=== PATIENT | male | born 1975 | race Caucasian/White ===

== ENCOUNTER → 2018-01-19 | Day surgery (SDC) | payer BC ==
[~2018-01-19] MED LIST: DICYCLOMINE HCL20 MG PO; DICYCLOMINE PO; FENTANYL CITRATE/PF 100MCG/2 ML INJ ONE; GLUCAGON FOR INJ 1 MG VIAL ONE; HYOSCYAMINE SULFATE 0.5 MG/ML AMP ONE; MIDAZOLAM HCL 2 MG/2 ML VIAL ONE; PROPOFOL IV EMULSION 10 MG/ML 50 ML VIAL ONE
[2018-01-19 15:26] LABS: WBC,FECAL (FECAL LACTOFERRIN) POSITIVE (NEGATIVE)
--- NOTE | 2018-01-19 15:55 | Operative Report ---
DATE OF PROCEDURE: January 19, 2018 REFERRING PHYSICIAN: Dr. Irving Ledesma. PROCEDURE PERFORMED: Colonoscopy and polypectomy with biopsies. INDICATIONS FOR PROCEDURE: Diarrhea, abdominal pain and history of bright red blood per rectum. MEDICATION: Patient was done under MAC. Please see anesthesiologist's note. PROCEDURE: With patient in the left lateral decubitus position, flexible fiberoptic Olympus colonoscope was inserted into the rectum with ease and advanced all the way to the cecum. Mucosa overlying the cecum grossly appeared to be within normal limits. The ileocecal valve was intubated. Scope was advanced into the terminal ileum. Biopsies were obtained. The scope was then withdrawn back into the colon. It was then withdrawn slowly. Mucosa overlying the ascending colon grossly appeared to be within normal limits. A segment of mid transverse colon to proximal descending colon was ulcerated, nodular and friable and biopsies were obtained. Some diverticular disease was scattered throughout but primarily in the left colon. Raised nodular and friable mucosa also was noted in the sigmoid colon alternating with relatively minimally involved mucosa. Biopsies were obtained. Mild to moderate inflammatory changes were noted in the rectum. Biopsies were obtained. One polyp was hot biopsied from the distal rectum. The scope was then retroflexed into the distal rectum and small internal hemorrhoids were noted, none of which was actively bleeding. The scope was then straightened out. The rectosigmoid area as well as the distal rectal area were decompressed. Scope was subsequently withdrawn after securing an adequate stool specimen that was sent for the appropriate stool studies. Patient tolerated procedure well. IMPRESSION: 1. A segment extending from approximately mid transverse colon to proximal descending colon, ulcerated, nodular and friable and biopsies were obtained. 2. Diverticulosis. . 3. Raised nodular, friable mucosa sigmoid colon alternating with relatively minimally involved mucosa. Biopsies were obtained. 4. Proctitis, biopsies obtained. 5. Polyp in distal rectum removed per hot biopsy forceps. 6. Internal hemorrhoids, none actively bleeding. PLAN: Follow up histology. Follow up stool studies. Findings are compatible with Crohn's disease. Will need to be initiated on an TNF alpha inhibitor. Job#: [id number] cc:IRVING LEDESMA,
[2018-01-19 20:44] LABS: C DIFFICILE TOXIN A&B AMP PROB NEGATIVE (NEGATIVE)
== END | disposition home or self-care (01) ==
LOC: OR 12:49
PROVIDERS: ATTEND Internal Medicine Gastroenterology
DX: K50.90 Crohn's disease, unspecified, without complications (principal); K63.5 Polyp of colon; K62.1 Rectal polyp; K57.30 Diverticulosis of large intestine without perforation or abscess without bleeding; K62.89 Other specified diseases of anus and rectum; K64.8 Other hemorrhoids; R63.4 Abnormal weight loss; R19.7 Diarrhea, unspecified; R03.0 Elevated blood-pressure reading, without diagnosis of hypertension; Z01.810 Encounter for preprocedural cardiovascular examination; Z68.26 Body mass index [BMI] 26.0-26.9, adult
CPT/HCPCS: 45380; 45384; 83630; 83993; 87045; 87177; 87328; 87493; 93005; J1610; J1980; J2250

== ENCOUNTER → 2021-02-04 | Day surgery (SDC) | payer BC ==
[~2021-02-04] MED LIST changes: +BENICAR20 MG PO; +FEROSUL325 MG PO; -GLUCAGON FOR INJ 1 MG VIAL ONE; +HUMIRA PEN40 MG/0.8 IM; -HYOSCYAMINE SULFATE 0.5 MG/ML AMP ONE; +LIDOCAINE HCL 2% LOCAL INJ 5 ML SDV VIAL INJ ONE; +MICARDIS40 MG PO; -MIDAZOLAM HCL 2 MG/2 ML VIAL ONE; +MIDAZOLAM HCL 5 MG/ML VIAL ONE; +PREDNISONE20 MG PO; +PROPOFOL IV EMULSION 10 MG/ML 20 ML VIAL ONE; -PROPOFOL IV EMULSION 10 MG/ML 50 ML VIAL ONE; +VITAMIN B-121000 MCG PO
[2021-02-04 12:05] VITALS: BP 139/89
== END | disposition home or self-care (01) ==
LOC: OR 06:54
PROVIDERS: ATTEND Internal Medicine Gastroenterology
DX: K50.90 Crohn's disease, unspecified, without complications (principal); D17.5 Benign lipomatous neoplasm of intra-abdominal organs; K63.5 Polyp of colon; K63.3 Ulcer of intestine; K62.89 Other specified diseases of anus and rectum; K64.8 Other hemorrhoids; I10 Essential (primary) hypertension; Z01.810 Encounter for preprocedural cardiovascular examination; Z01.812 Encounter for preprocedural laboratory examination; Z20.822 Contact with and (suspected) exposure to COVID-19; Z68.29 Body mass index [BMI] 29.0-29.9, adult
CPT/HCPCS: 36415; 45380; 45385; 83993; 85651; 86140; 86256; 86671; 93005; J2001; J2250; J2704; J3010; U0002; 45378; 45384

== ENCOUNTER 2021-02-06 10:03 | Inpatient (IN) | payer BC ==
[~2021-02-06] VITALS: Ht 175.3 cm; Wt 86.2 kg
[~2021-02-06 10:03] MED LIST changes: -FENTANYL CITRATE/PF 100MCG/2 ML INJ ONE; -FEROSUL325 MG PO; -LIDOCAINE HCL 2% LOCAL INJ 5 ML SDV VIAL INJ ONE; -MICARDIS40 MG PO; -MIDAZOLAM HCL 5 MG/ML VIAL ONE; -PREDNISONE20 MG PO; -PROPOFOL IV EMULSION 10 MG/ML 20 ML VIAL ONE; -VITAMIN B-121000 MCG PO
[2021-02-06] MEDS ORDERED: METHYLPREDNISOLONE SOD SUCC 125 MG/2ML VIAL IV ONE (11:00)
[2021-02-06] MEDS ORDERED: SODIUM CHLORIDE 0.9% 50ML 50 ML ONE (11:04)
[2021-02-06] MEDS ORDERED: IOPAMIDOL 370 MG/ML 200 ML INFUS..BTL INJ ONE (11:04)
[2021-02-06] MEDS: METHYLPREDNISOLONE SOD SUCC 125 MG/2ML VIAL IV SCH ×2 (11:13→17:38)
[2021-02-06] MEDS ORDERED: METHYLPREDNISOLONE SOD SUCC 125 MG/2ML VIAL ONE (11:19)
[2021-02-06] MEDS ORDERED: SODIUM CHLORIDE FLUSH 10 ML SYR INJ PRN (11:30)
[2021-02-06 13:33] LABS: INR 0.98; PROTHROMBIN TIME 13.6 seconds (11.9-14.5)
[2021-02-06 14:12] VITALS: BP 126/71
[2021-02-06 14:43] VITALS: BP 126/71
[2021-02-06 14:45] VITALS: BP 126/71
[2021-02-06 15:22] LABS: BASOPHILS # (AUTO) 0.1 (0.0-0.1); BASOPHILS % 0.6 % (0.0-1.0); EOSINOPHILS % 0.1 % (0.0-6.0); HEMATOCRIT 28.9 % (38.2-49.6); HEMOGLOBIN 9.4 g/dL (14.0-18.0); LYMPHOCYTES % 9.1 % (18.0-39.1); MEAN CORPUSCULAR HEMOGLOBIN 27.8 pg (28-32); MEAN CORPUSCULAR HGB CONC 32.5 g/dL (31-35); MEAN CORPUSCULAR VOLUME 85.5 fL (81-99); MONOCYTES # (AUTO) 0.1 (0.2-0.8); NEUTROPHILS # (AUTO) 9.3 (2.1-6.9); NEUTROPHILS % 88.6 % (38.7-80.0); PLATELET COUNT 276 x10e3/uL (140-360); RED BLOOD COUNT 3.38 x10e6/uL (4.3-5.7); RED CELL DISTRIBUTION WIDTH 14.5 % (11.7-14.4)
[2021-02-06 15:38] LABS: ALANINE AMINOTRANSFERASE 84 IU/L (0-55); ALBUMIN 3.8 g/dL (3.5-5.0); ALKALINE PHOSPHATASE 64 IU/L (40-150); ANION GAP 16.2 mmol/L (8-16); BLOOD UREA NITROGEN 7 mg/dL (7-26); BUN/CREATININE RATIO 8 (6-25); CALCIUM 8.5 mg/dL (8.4-10.2); CARBON DIOXIDE 22 mmol/L (22-29); CHLORIDE 104 mmol/L (98-107); CREATININE, SERUM 0.84 mg/dL (0.72-1.25); EST GLOMERULAR FILTRATION RATE > 60 ML/MIN (60-); GLUCOSE 130 mg/dL (74-118); POTASSIUM 4.2 mmol/L (3.5-5.1); SODIUM 138 mmol/L (136-145)
[2021-02-06 15:45] VITALS: BP 132/70
[2021-02-06 19:21] LABS: HEMATOCRIT 28.3 % (38.2-49.6)
[2021-02-06 20:00] VITALS: BP 134/79
[2021-02-06 23:36] VITALS: BP 134/79
[2021-02-07] VITALS (8 sets, daily range): BP systolic 109–139; BP diastolic 53–79
[2021-02-07 05:03] LABS: HEMATOCRIT 27.2 % (38.2-49.6); HEMOGLOBIN 8.6 g/dL (14.0-18.0)
[2021-02-07 05:20] LABS: ANION GAP 14.4 mmol/L (8-16); BLOOD UREA NITROGEN 8 mg/dL (7-26); BUN/CREATININE RATIO 9 (6-25); CALCIUM 8.5 mg/dL (8.4-10.2); CARBON DIOXIDE 24 mmol/L (22-29); CHLORIDE 106 mmol/L (98-107); CREATININE, SERUM 0.87 mg/dL (0.72-1.25); EST GLOMERULAR FILTRATION RATE > 60 ML/MIN (60-); GLUCOSE 155 mg/dL (74-118); POTASSIUM 4.4 mmol/L (3.5-5.1); SODIUM 140 mmol/L (136-145)
[2021-02-07 05:35] LABS: % IRON SATURATION 7 % (15-50); IRON 28 ug/dL (65-175); TOTAL IRON BINDING CAPACITY 374 ug/dL (261-478); TRANSFERRIN 267 mg/dL (174-364)
[2021-02-07 06:54] LABS: BASOPHILS % 0.1 % (0.0-1.0); HEMOGLOBIN 8.6 g/dL (14.0-18.0); LYMPHOCYTES # (AUTO) 1.6 (1.0-3.2); LYMPHOCYTES % 12.3 % (18.0-39.1); MEAN CORPUSCULAR HEMOGLOBIN 27.5 pg (28-32); MEAN CORPUSCULAR HGB CONC 31.9 g/dL (31-35); MEAN CORPUSCULAR VOLUME 86.3 fL (81-99); MONOCYTES # (AUTO) 0.3 (0.2-0.8); MONOCYTES % 1.9 % (4.4-11.3); NEUTROPHILS # (AUTO) 11.3 (2.1-6.9); NEUTROPHILS % 85.1 % (38.7-80.0); PLATELET COUNT 280 x10e3/uL (140-360); RED BLOOD COUNT 3.13 x10e6/uL (4.3-5.7); RED CELL DISTRIBUTION WIDTH 14.7 % (11.7-14.4)
[2021-02-07] MEDS ORDERED: METHYLPREDNISOLONE SOD SUCC 125 MG/2ML VIAL IV SCH (09:00)
[2021-02-07] MEDS: TELMISARTAN 40 MG TAB PO SCH (09:00)
[2021-02-07] MEDS ORDERED: OLMESARTAN 20 MG TAB PO SCH (09:00)
[2021-02-07 13:07] LABS: HEMOGLOBIN 8.8 g/dL (14.0-18.0)
[2021-02-07] MEDS: METHYLPREDNISOLONE SOD SUCC 125 MG/2ML VIAL IV SCH ×2 (15:00→19:27)
[2021-02-07 18:09] LABS: HEMOGLOBIN 8.7 g/dL (14.0-18.0)
[2021-02-08] VITALS: BP 136/65
[2021-02-08] MEDS: METHYLPREDNISOLONE SOD SUCC 125 MG/2ML VIAL IV SCH ×2 (00:38→06:40)
[2021-02-08 04:00] VITALS: BP 131/77
[2021-02-08 05:07] LABS: HEMATOCRIT 26.5 % (38.2-49.6); HEMOGLOBIN 8.3 g/dL (14.0-18.0)
[2021-02-08 05:39] LABS: ANION GAP 14.6 mmol/L (8-16); BLOOD UREA NITROGEN 11 mg/dL (7-26); BUN/CREATININE RATIO 12 (6-25); CALCIUM 8.3 mg/dL (8.4-10.2); CARBON DIOXIDE 27 mmol/L (22-29); CHLORIDE 105 mmol/L (98-107); CREATININE, SERUM 0.92 mg/dL (0.72-1.25); EST GLOMERULAR FILTRATION RATE > 60 ML/MIN (60-); GLUCOSE 153 mg/dL (74-118); POTASSIUM 4.6 mmol/L (3.5-5.1); SODIUM 142 mmol/L (136-145)
[2021-02-08 07:16] LABS: BASOPHILS % 0.1 % (0.0-1.0); HEMATOCRIT 26.7 % (38.2-49.6); HEMOGLOBIN 8.4 g/dL (14.0-18.0); LYMPHOCYTES # (AUTO) 1.8 (1.0-3.2); LYMPHOCYTES % 11.7 % (18.0-39.1); MEAN CORPUSCULAR HEMOGLOBIN 27.5 pg (28-32); MEAN CORPUSCULAR HGB CONC 31.5 g/dL (31-35); MEAN CORPUSCULAR VOLUME 87.5 fL (81-99); MONOCYTES # (AUTO) 0.5 (0.2-0.8); MONOCYTES % 3.5 % (4.4-11.3); NEUTROPHILS # (AUTO) 12.5 (2.1-6.9); PLATELET COUNT 296 x10e3/uL (140-360); RED BLOOD COUNT 3.05 x10e6/uL (4.3-5.7); RED CELL DISTRIBUTION WIDTH 15.1 % (11.7-14.4)
[2021-02-08 08:40] VITALS: BP 123/64
[2021-02-08] MEDS ORDERED: IRON SUCROSE 100 MG in SODIUM CHLORIDE 0.9% 100 ML 100 ML IV SCH (09:00)
[2021-02-08] MEDS ORDERED: CYANOCOBALAMIN INJ 1,000 MCG/ML VIAL IM SCH (09:00)
[2021-02-08] MEDS: TELMISARTAN 40 MG TAB PO SCH (09:10)
[2021-02-08] MEDS ORDERED: MICARDIS40 MG PO (10:06)
[2021-02-08] MEDS ORDERED: VITAMIN B-121000 MCG PO (10:06)
[2021-02-08] MEDS ORDERED: PREDNISONE20 MG PO (10:06)
[2021-02-08] MEDS ORDERED: FEROSUL325 MG PO (10:06)
== END 2021-02-08 10:46 | disposition home or self-care (01) | DRG 387 ==
LOC: FSED 10:17 → ERHOLD 11:42 → IMCU 13:50 → MED/SURG2 02-07 07:34 → OBSVTOIN 02-08 08:38
PROVIDERS: ADMIT Internal Medicine; ATTEND Internal Medicine
DX: K50.111 Crohn's disease of large intestine with rectal bleeding (principal); I10 Essential (primary) hypertension; D64.9 Anemia, unspecified; Z86.010 Personal history of colon polyps; Z98.890 Other specified postprocedural states
CPT/HCPCS: 36415; 74177; 80048; 80053; 82607; 82746; 83540; 83735; 84466; 85014; 85018; 85025; 85045; 85610; 85730; 86850; 86900; 99284; G0378; J1756; J2930; J3420; Q9967

== ENCOUNTER 2022-04-22 09:21 | Emergency (ER) | payer BC ==
[~2022-04-22] VITALS: Ht 175.3 cm; Wt 86.2 kg
[~2022-04-22 09:21] MED LIST changes: +FEROSUL325 MG PO; +MICARDIS40 MG PO; +PREDNISONE20 MG PO; +VITAMIN B-121000 MCG PO
[2022-04-22] MEDS ORDERED: SODIUM CHLORIDE 0.9% 1000ML 1,000 ML IV STA (09:40)
[2022-04-22] MEDS ORDERED: ONDANSETRON HCL INJ 2MG/ML 2ML 2 MG/ML VIAL IV STA (09:55)
[2022-04-22] MEDS ORDERED: Morphine 4mg INJECTION 4 MG/ML INJ IV STA (09:55)
[2022-04-22 10:47] LABS: BASOPHILS # (AUTO) 0.1 (0.0-0.1); BASOPHILS % 0.8 % (0.0-1.0); EOSINOPHILS # (AUTO) 0.1 (0.0-0.4); EOSINOPHILS % 0.8 % (0.0-6.0); HEMATOCRIT 35.7 % (38.2-49.6); HEMOGLOBIN 10.9 g/dL (14.0-18.0); LYMPHOCYTES # (AUTO) 2.4 (1.0-3.2); LYMPHOCYTES % 16.4 % (18.0-39.1); MEAN CORPUSCULAR HEMOGLOBIN 24.2 pg (28-32); MEAN CORPUSCULAR HGB CONC 30.5 g/dL (31-35); MEAN CORPUSCULAR VOLUME 79.2 fL (81-99); MONOCYTES # (AUTO) 1.6 (0.2-0.8); MONOCYTES % 10.9 % (4.4-11.3); NEUTROPHILS # (AUTO) 10.2 (2.1-6.9); NEUTROPHILS % 70.2 % (38.7-80.0); PLATELET COUNT 734 x10e3/uL (140-360); RED BLOOD COUNT 4.51 x10e6/uL (4.3-5.7); RED CELL DISTRIBUTION WIDTH 14.6 % (11.7-14.4)
[2022-04-22 10:50] LABS: CLARITY,URINE CLEAR (CLEAR); COLOR,URINE YELLOW (YELLOW); KETONES,URINE NEGATIVE (NEGATIVE); LEUKOCYTE ESTERASE ,URINE NEGATIVE (NEGATIVE); NITRITE,URINE NEGATIVE (NEGATIVE); PROTEIN,URINE DIPSTICK NEGATIVE (NEGATIVE); URINE UROBILINOGEN 0.2 mg/dL (0.2 - 1)
[2022-04-22 10:59] LABS: BACTERIA,URINE FEW /HPF; EPITHELIAL CELLS,URINE FEW /LPF; RBC,URINE 0-5 /HPF (0-5); WBC,URINE (MAN) 0-5 /HPF (0-5)
[2022-04-22 11:05] LABS: INR 1.03; PROTHROMBIN TIME 14.4 seconds (11.9-14.5)
[2022-04-22 11:07] LABS: PARTIAL THROMBOPLASTIN TIME 34.1 seconds (23.8-35.5)
[2022-04-22 11:10] LABS: ALBUMIN 2.3 g/dL (3.5-5.0); ALBUMIN/GLOBULIN RATIO 0.5 (0.8-2.0); ANION GAP 14.3 mmol/L (8-16); CALCIUM 8.2 mg/dL (8.4-10.2); CREATININE, SERUM 0.84 mg/dL (0.72-1.25); MAGNESIUM 1.7 MG/DL (1.3-2.1); POTASSIUM 4.3 mmol/L (3.5-5.1)
[2022-04-22 11:29] LABS: CREATINE KINASE MB 0.3 ng/mL (0-5.0)
[2022-04-22] MEDS ORDERED: IOPAMIDOL 370 MG/ML 100 ML INFUS..BTL INJ ONE (11:38)
[2022-04-22 13:53] VITALS: BP 111/72
== END 2022-04-22 14:01 | disposition home or self-care (01) ==
LOC: ER 09:31
DX: R10.30 Lower abdominal pain, unspecified (principal); K50.90 Crohn's disease, unspecified, without complications; R11.0 Nausea; I10 Essential (primary) hypertension; Z20.822 Contact with and (suspected) exposure to COVID-19
CPT/HCPCS: 36415; 74177; 76705; 80053; 81001; 82550; 82553; 83690; 83735; 84484; 85025; 85610; 85730; 87086; 93005; 99284; C9113; J2270; J2405; J7030; Q9967; U0002

== ENCOUNTER → 2022-05-13 | Outpatient (CLI) | payer BC ==
[~2022-05-13] MED LIST changes: +APRISO0.375 GM PO; +STELARA130 MG/26 IM/IV/SC
== END ==
LOC: RAD 09:59
PROVIDERS: ATTEND Internal Medicine Gastroenterology
DX: K50.90 Crohn's disease, unspecified, without complications (principal); R10.9 Unspecified abdominal pain
CPT/HCPCS: 74019

== ENCOUNTER 2022-05-17 22:43 | Inpatient (IN) | payer BC ==
[~2022-05-17] VITALS: Ht 175.3 cm; Wt 68.0 kg
[2022-05-17] MEDS ORDERED: SODIUM CHLORIDE 0.9% 1000ML 1,000 ML IV STA (23:19)
[2022-05-17 23:28] LABS: BASOPHILS # (AUTO) 0.1 (0.0-0.1); BASOPHILS % 0.3 % (0.0-1.0); EOSINOPHILS # (AUTO) 0.1 (0.0-0.4); EOSINOPHILS % 0.8 % (0.0-6.0); HEMATOCRIT 37.5 % (38.2-49.6); HEMOGLOBIN 11.4 g/dL (14.0-18.0); LYMPHOCYTES # (AUTO) 4.9 (1.0-3.2); LYMPHOCYTES % 26.5 % (18.0-39.1); MEAN CORPUSCULAR HEMOGLOBIN 24.3 pg (28-32); MEAN CORPUSCULAR HGB CONC 30.4 g/dL (31-35); MONOCYTES # (AUTO) 0.6 (0.2-0.8); NEUTROPHILS # (AUTO) 12.7 (2.1-6.9); PLATELET COUNT 874 x10e3/uL (140-360); RED BLOOD COUNT 4.69 x10e6/uL (4.3-5.7); RED CELL DISTRIBUTION WIDTH 15.9 % (11.7-14.4)
[2022-05-17 23:39] LABS: ALBUMIN 2.6 g/dL (3.5-5.0); ALBUMIN/GLOBULIN RATIO 0.6 (0.8-2.0); ANION GAP 17.1 mmol/L (8-16); CALCIUM 8.2 mg/dL (8.4-10.2); CREATININE, SERUM 1.02 mg/dL (0.72-1.25); POTASSIUM 4.1 mmol/L (3.5-5.1)
[2022-05-18] VITALS (8 sets, daily range): BP systolic 108–118; BP diastolic 65–78
[2022-05-18] MEDS: ONDANSETRON HCL INJ 2MG/ML 2ML 2 MG/ML VIAL IV PRN ×2 (00:10→01:36)
[2022-05-18] MEDS ORDERED: IOPAMIDOL 370 MG/ML 100 ML INFUS..BTL INJ ONE (00:28)
[2022-05-18] MEDS: FENTANYL CITRATE/PF 100MCG/2 ML INJ IV PRN ×6 (01:35→22:52)
[2022-05-18 01:37] LABS: CLARITY,URINE CLEAR (CLEAR); COLOR,URINE YELLOW (YELLOW); KETONES,URINE NEGATIVE (NEGATIVE); LEUKOCYTE ESTERASE ,URINE NEGATIVE (NEGATIVE); NITRITE,URINE NEGATIVE (NEGATIVE); PROTEIN,URINE DIPSTICK NEGATIVE (NEGATIVE); URINE UROBILINOGEN 0.2 mg/dL (0.2 - 1)
[2022-05-18 01:42] LABS: BACTERIA,URINE FEW /HPF; EPITHELIAL CELLS,URINE FEW /LPF; WBC,URINE (MAN) 0-5 /HPF (0-5)
[2022-05-18] MEDS ORDERED: ONDANSETRON HCL INJ 2MG/ML 2ML 2 MG/ML VIAL IV PRN (02:15)
[2022-05-18] MEDS: METHYLPREDNISOLONE SOD SUCC 40 MG/ML VIAL 1ML IV SCH ×5 (02:17→23:37)
[2022-05-18] MEDS: SODIUM CHLORIDE 0.9% 1000ML 1,000 ML IV SCH ×3 (03:19→20:01)
[2022-05-18] MEDS: Morphine 2mg Syringe 2 MG/ML SYR IV PRN ×5 (03:20→20:39)
[2022-05-18 11:24] LABS: CHOL/HDL RATIO 2.9 (3.9-4.7)
[2022-05-18] MEDS: SODIUM CHLORIDE 0.9% 250ML IRRIG IR SCH ×3 (12:01→20:01)
[2022-05-18] MEDS ORDERED: METRONIDAZOLE 500MG/NS 100ML 100 ML IV SCH (14:00)
[2022-05-18] MEDS ORDERED: LEVOFLOXACIN 500MG/D5W 100ML 100 ML IV ONE (23:45)
[2022-05-19] VITALS (8 sets, daily range): BP systolic 101–133; BP diastolic 63–77
[2022-05-19 00:03] LABS: % IRON SATURATION 9 % (15-50); IRON 22 ug/dL (65-175); TOTAL IRON BINDING CAPACITY 253 ug/dL (261-478); TRANSFERRIN 181 mg/dL (174-364)
[2022-05-19] MEDS: METRONIDAZOLE 500MG/NS 100ML 100 ML IV SCH ×4 (00:07→17:07)
[2022-05-19] MEDS: SODIUM CHLORIDE 0.9% 250ML IRRIG IR SCH ×6 (00:07→20:20)
[2022-05-19] MEDS: Morphine 2mg Syringe 2 MG/ML SYR IV PRN ×5 (00:40→20:09)
[2022-05-19] MEDS: FENTANYL CITRATE/PF 100MCG/2 ML INJ IV PRN (02:48)
[2022-05-19] MEDS: SODIUM CHLORIDE 0.9% 1000ML 1,000 ML IV SCH ×3 (05:01→17:13)
[2022-05-19 05:21] LABS: BASOPHILS # (AUTO) 0.1 (0.0-0.1); BASOPHILS % 0.5 % (0.0-1.0); HEMATOCRIT 32.9 % (38.2-49.6); HEMOGLOBIN 10.3 g/dL (14.0-18.0); LYMPHOCYTES # (AUTO) 0.8 (1.0-3.2); LYMPHOCYTES % 4.1 % (18.0-39.1); MEAN CORPUSCULAR HEMOGLOBIN 24.3 pg (28-32); MEAN CORPUSCULAR HGB CONC 31.3 g/dL (31-35); MEAN CORPUSCULAR VOLUME 77.6 fL (81-99); MONOCYTES # (AUTO) 0.5 (0.2-0.8); MONOCYTES % 2.4 % (4.4-11.3); NEUTROPHILS # (AUTO) 18.6 (2.1-6.9); NEUTROPHILS % 90.3 % (38.7-80.0); PLATELET COUNT 574 x10e3/uL (140-360); RED BLOOD COUNT 4.24 x10e6/uL (4.3-5.7); RED CELL DISTRIBUTION WIDTH 16.2 % (11.7-14.4)
[2022-05-19 05:44] LABS: ALBUMIN 1.9 g/dL (3.5-5.0); ALBUMIN/GLOBULIN RATIO 0.5 (0.8-2.0); ANION GAP 16.7 mmol/L (8-16); CALCIUM 7.8 mg/dL (8.4-10.2); CREATININE, SERUM 1.11 mg/dL (0.72-1.25); POTASSIUM 4.7 mmol/L (3.5-5.1)
[2022-05-19] MEDS: METHYLPREDNISOLONE SOD SUCC 40 MG/ML VIAL 1ML IV SCH ×3 (05:59→17:07)
[2022-05-19] MEDS ORDERED: IRON SUCROSE 100 MG in SODIUM CHLORIDE 0.9% 100 ML IV SCH (06:00)
[2022-05-19] MEDS: IRON SUCROSE 100 MG in SODIUM CHLORIDE 0.9% 100 ML IV SCH (08:46)
[2022-05-19 11:58] LABS: BAND NEUTROPHILS % (MANUAL) 20 %; LYMPHOCYTES % (MANUAL) 1 % (19-48); METAMYELOCYTES % (MANUAL) 4 % (0-0); MONOCYTES % (MANUAL) 3 % (3.4-9.0); NEUTROPHILS % (MANUAL) 72 % (40-74); PLATELET ESTIMATE SLIGHTLY INCREASED; PLATELET MORPHOLOGY COMMENT NORMAL; RBC MORPHOLOGY COMMENT NORMAL
[2022-05-19] MEDS: BISACODYL 10 MG SUPP PR SCH (20:09)
[2022-05-19] MEDS: LEVOFLOXACIN 500MG/D5W 100ML 100 ML IV SCH (22:46)
[2022-05-19] MEDS ORDERED: FOLIC ACID 5 MG/ML VIAL IV ONE (23:15)
[2022-05-20] VITALS (8 sets, daily range): BP systolic 105–126; BP diastolic 65–83
[2022-05-20] MEDS: SODIUM CHLORIDE 0.9% 250ML IRRIG IR SCH ×6 (00:52→20:00)
[2022-05-20] MEDS: METRONIDAZOLE 500MG/NS 100ML 100 ML IV SCH ×4 (01:24→17:03)
[2022-05-20] MEDS: METHYLPREDNISOLONE SOD SUCC 40 MG/ML VIAL 1ML IV SCH ×4 (01:24→17:02)
[2022-05-20] MEDS: SODIUM CHLORIDE 0.9% 1000ML 1,000 ML IV SCH ×3 (03:03→17:04)
[2022-05-20] MEDS: BISACODYL 10 MG SUPP PR SCH (09:24)
[2022-05-20] MEDS: IRON SUCROSE 100 MG in SODIUM CHLORIDE 0.9% 100 ML IV SCH (09:24)
[2022-05-20 11:28] LABS: BASOPHILS # (AUTO) 0.1 (0.0-0.1); BASOPHILS % 0.4 % (0.0-1.0); HEMATOCRIT 28.6 % (38.2-49.6); HEMOGLOBIN 9.2 g/dL (14.0-18.0); LYMPHOCYTES # (AUTO) 0.6 (1.0-3.2); LYMPHOCYTES % 2.9 % (18.0-39.1); MEAN CORPUSCULAR HEMOGLOBIN 24.3 pg (28-32); MEAN CORPUSCULAR HGB CONC 32.2 g/dL (31-35); MEAN CORPUSCULAR VOLUME 75.5 fL (81-99); MONOCYTES # (AUTO) 0.4 (0.2-0.8); NEUTROPHILS # (AUTO) 20.2 (2.1-6.9); NEUTROPHILS % 93.2 % (38.7-80.0); PLATELET COUNT 492 x10e3/uL (140-360); RED BLOOD COUNT 3.79 x10e6/uL (4.3-5.7); RED CELL DISTRIBUTION WIDTH 16.8 % (11.7-14.4)
[2022-05-20 12:00] LABS: ANION GAP 13.4 mmol/L (8-16); CALCIUM 8.2 mg/dL (8.4-10.2); CREATININE, SERUM 1.03 mg/dL (0.72-1.25); POTASSIUM 4.4 mmol/L (3.5-5.1)
[2022-05-20 12:10] LABS: LYMPHOCYTES % (MANUAL) 3 % (19-48); NEUTROPHILS % (MANUAL) 97 % (40-74); PLATELET ESTIMATE ADEQUATE; PLATELET MORPHOLOGY COMMENT NORMAL; RBC MORPHOLOGY COMMENT NORMAL
[2022-05-20] MEDS: LEVOFLOXACIN 500MG/D5W 100ML 100 ML IV SCH (22:51)
[2022-05-21] VITALS (17 sets, daily range): BP systolic 120–156; BP diastolic 84–103
[2022-05-21] MEDS: SODIUM CHLORIDE 0.9% 1000ML 1,000 ML IV SCH ×4 (03:18→23:21)
[2022-05-21] MEDS: SODIUM CHLORIDE 0.9% 250ML IRRIG IR SCH ×7 (04:00→21:14)
[2022-05-21] MEDS: METRONIDAZOLE 500MG/NS 100ML 100 ML IV SCH ×4 (05:15→20:01)
[2022-05-21] MEDS: METHYLPREDNISOLONE SOD SUCC 40 MG/ML VIAL 1ML IV SCH ×5 (06:00→23:13)
[2022-05-21] MEDS: IRON SUCROSE 100 MG in SODIUM CHLORIDE 0.9% 100 ML IV SCH (09:09)
[2022-05-21 09:38] LABS: BASOPHILS % 0.1 % (0.0-1.0); HEMATOCRIT 29.5 % (38.2-49.6); HEMOGLOBIN 9.4 g/dL (14.0-18.0); LYMPHOCYTES # (AUTO) 0.8 (1.0-3.2); LYMPHOCYTES % 4.4 % (18.0-39.1); MEAN CORPUSCULAR HEMOGLOBIN 23.9 pg (28-32); MEAN CORPUSCULAR HGB CONC 31.9 g/dL (31-35); MEAN CORPUSCULAR VOLUME 75.1 fL (81-99); MONOCYTES # (AUTO) 0.5 (0.2-0.8); MONOCYTES % 2.9 % (4.4-11.3); NEUTROPHILS # (AUTO) 16.1 (2.1-6.9); NEUTROPHILS % 91.4 % (38.7-80.0); PLATELET COUNT 419 x10e3/uL (140-360); RED BLOOD COUNT 3.93 x10e6/uL (4.3-5.7); RED CELL DISTRIBUTION WIDTH 17.1 % (11.7-14.4)
[2022-05-21 09:58] LABS: ANION GAP 12.9 mmol/L (8-16); CALCIUM 8.1 mg/dL (8.4-10.2); CREATININE, SERUM 0.97 mg/dL (0.72-1.25); POTASSIUM 3.9 mmol/L (3.5-5.1)
[2022-05-21 10:28] LABS: MAGNESIUM 2.3 MG/DL (1.3-2.1); PHOSPHORUS 3.8 MG/DL (2.3-4.7)
[2022-05-21] MEDS ORDERED: MIDAZOLAM HCL 2 MG/2 ML VIAL ONE (14:24)
[2022-05-21] MEDS ORDERED: FENTANYL CITRATE/PF 100MCG/2 ML INJ ONE (14:24)
[2022-05-21] MEDS ORDERED: SUCCINYLCHOLINE CHLORIDE 20 MG/ML 10ML VIAL ONE (14:40)
[2022-05-21] MEDS ORDERED: LIDOCAINE HCL 2% LOCAL INJ 5 ML SDV VIAL INJ ONE (14:40)
[2022-05-21] MEDS ORDERED: NEOSTIGMINE 1 MG/ML 10ML VIAL ONE (14:40)
[2022-05-21] MEDS ORDERED: POVIDONE IODINE 0.05% 0.05 % ML PO ONE (14:40)
[2022-05-21] MEDS ORDERED: ROCURONIUM BROMIDE 10 MG/ML 5ML VIAL IV ONE (14:40)
[2022-05-21] MEDS ORDERED: ONDANSETRON HCL INJ 2MG/ML 2ML 2 MG/ML VIAL ONE (14:40)
[2022-05-21] MEDS ORDERED: SEVOFLURANE INHAL SOLN 250 ML PEN BTL ONE (14:40)
[2022-05-21] MEDS ORDERED: GLYCOPYRROLATE INJ 0.2 MG/ML VIAL ONE (14:40)
[2022-05-21] MEDS ORDERED: PROPOFOL IV EMULSION 10 MG/ML 20 ML VIAL ONE (14:40)
[2022-05-21] MEDS ORDERED: DEXAMETHASONE SOD PHOS INJ 4 MG/ML SDV ONE (14:40)
[2022-05-21] MEDS ORDERED: KETOROLAC TROMETHAMINE 30 MG/ML VIAL ONE (14:40)
[2022-05-21] MEDS ORDERED: NALOXONE HCL INJ 0.4 MG/ML AMP IV PRN (17:00)
[2022-05-21] MEDS ORDERED: HYDROMORPHONE 0.2MG/ML-SOD CHL 30ML PCA SYRINGE IV PRN (17:00)
[2022-05-21] MEDS ORDERED: ONDANSETRON HCL INJ 2MG/ML 2ML 2 MG/ML VIAL IV PRN (17:00)
[2022-05-21] MEDS: KETOROLAC TROMETHAMINE 30 MG/ML VIAL IV PRN (23:13)
[2022-05-22] VITALS (26 sets, daily range): BP systolic 108–144; BP diastolic 69–109
[2022-05-22] MEDS: SODIUM CHLORIDE 0.9% 250ML IRRIG IR SCH ×6 (01:28→20:42)
[2022-05-22] MEDS: METRONIDAZOLE 500MG/NS 100ML 100 ML IV SCH ×4 (02:38→19:59)
[2022-05-22] MEDS: METHYLPREDNISOLONE SOD SUCC 40 MG/ML VIAL 1ML IV SCH ×4 (05:33→22:29)
[2022-05-22] MEDS: KETOROLAC TROMETHAMINE 30 MG/ML VIAL IV PRN ×2 (05:34→20:00)
[2022-05-22] MEDS: SODIUM CHLORIDE 0.9% 1000ML 1,000 ML IV SCH (06:10)
[2022-05-22 09:42] LABS: BASOPHILS % 0.2 % (0.0-1.0); HEMATOCRIT 28.5 % (38.2-49.6); HEMOGLOBIN 8.9 g/dL (14.0-18.0); LYMPHOCYTES # (AUTO) 0.8 (1.0-3.2); MEAN CORPUSCULAR HGB CONC 31.2 g/dL (31-35); MEAN CORPUSCULAR VOLUME 76.8 fL (81-99); MONOCYTES # (AUTO) 0.8 (0.2-0.8); MONOCYTES % 4.8 % (4.4-11.3); NEUTROPHILS # (AUTO) 14.3 (2.1-6.9); NEUTROPHILS % 88.4 % (38.7-80.0); PLATELET COUNT 310 x10e3/uL (140-360); RED BLOOD COUNT 3.71 x10e6/uL (4.3-5.7); RED CELL DISTRIBUTION WIDTH 17.2 % (11.7-14.4)
[2022-05-22 10:03] LABS: ALBUMIN 1.6 g/dL (3.5-5.0); ALBUMIN/GLOBULIN RATIO 0.5 (0.8-2.0); ANION GAP 12.1 mmol/L (8-16); CALCIUM 7.1 mg/dL (8.4-10.2); CREATININE, SERUM 1.08 mg/dL (0.72-1.25); POTASSIUM 4.1 mmol/L (3.5-5.1)
[2022-05-22] MEDS ORDERED: SODIUM CHLORIDE 0.45% 1,000 ML IV ONE (12:15)
[2022-05-22] MEDS: IRON SUCROSE 100 MG in SODIUM CHLORIDE 0.9% 100 ML IV SCH (12:29)
[2022-05-22] MEDS: HYDROMORPHONE 1MG/1ML INJ IV PRN ×3 (13:16→22:59)
[2022-05-22] MEDS ORDERED: LACTATED RINGER'S 500 ML IV ONE (15:30)
[2022-05-22] MEDS ORDERED: LACTATED RINGER'S 1,000 ML ONE (15:50)
[2022-05-22] MEDS ORDERED: LACTATED RINGER'S 1,000 ML IV ONE (18:00)
[2022-05-22 18:57] LABS: ANION GAP 14.1 mmol/L (8-16); CREATININE, SERUM 0.93 mg/dL (0.72-1.25); POTASSIUM 4.1 mmol/L (3.5-5.1)
[2022-05-22 19:11] LABS: CALCIUM 6.9 mg/dL (8.4-10.2)
[2022-05-22] MEDS: SODIUM CHLORIDE 0.45% 1,000 ML IV SCH (20:42)
[2022-05-23] VITALS (25 sets, daily range): BP systolic 117–150; BP diastolic 75–95
[2022-05-23] MEDS: SODIUM CHLORIDE 0.9% 250ML IRRIG IR SCH ×6 (01:00→20:48)
[2022-05-23] MEDS: METRONIDAZOLE 500MG/NS 100ML 100 ML IV SCH ×4 (02:11→20:35)
[2022-05-23] MEDS: SODIUM CHLORIDE 0.45% 1,000 ML IV SCH ×3 (03:22→15:32)
[2022-05-23] MEDS: HYDROMORPHONE 1MG/1ML INJ IV PRN ×5 (03:27→20:32)
[2022-05-23] MEDS: METHYLPREDNISOLONE SOD SUCC 40 MG/ML VIAL 1ML IV SCH ×3 (05:53→21:42)
[2022-05-23] MEDS: IRON SUCROSE 100 MG in SODIUM CHLORIDE 0.9% 100 ML IV SCH (08:28)
[2022-05-23 09:24] LABS: BASOPHILS % 0.1 % (0.0-1.0); HEMATOCRIT 26.2 % (38.2-49.6); LYMPHOCYTES # (AUTO) 1.2 (1.0-3.2); LYMPHOCYTES % 8.4 % (18.0-39.1); MEAN CORPUSCULAR HGB CONC 30.5 g/dL (31-35); MEAN CORPUSCULAR VOLUME 78.7 fL (81-99); MONOCYTES # (AUTO) 0.8 (0.2-0.8); MONOCYTES % 5.6 % (4.4-11.3); NEUTROPHILS # (AUTO) 11.5 (2.1-6.9); RED BLOOD COUNT 3.33 x10e6/uL (4.3-5.7); RED CELL DISTRIBUTION WIDTH 17.7 % (11.7-14.4)
[2022-05-23 09:52] LABS: ALBUMIN 1.5 g/dL (3.5-5.0); ALBUMIN/GLOBULIN RATIO 0.5 (0.8-2.0); ANION GAP 12.6 mmol/L (8-16); CALCIUM 7.1 mg/dL (8.4-10.2); CREATININE, SERUM 0.94 mg/dL (0.72-1.25); POTASSIUM 4.6 mmol/L (3.5-5.1)
[2022-05-23] MEDS: KETOROLAC TROMETHAMINE 30 MG/ML VIAL IV PRN (11:46)
[2022-05-23] MEDS ORDERED: FUROSEMIDE INJ 10 MG/ML 2 ML VIAL IV ONE (16:00)
[2022-05-23] MEDS: BISACODYL 10 MG SUPP PR SCH (21:42)
[2022-05-24] VITALS (21 sets, daily range): BP systolic 133–184; BP diastolic 77–114
[2022-05-24] MEDS: METRONIDAZOLE 500MG/NS 100ML 100 ML IV SCH ×4 (01:32→19:17)
[2022-05-24] MEDS: SODIUM CHLORIDE 0.9% 250ML IRRIG IR SCH ×5 (01:39→15:57)
[2022-05-24] MEDS: HYDROMORPHONE 1MG/1ML INJ IV PRN ×4 (01:53→07:14)
[2022-05-24 05:11] LABS: BASOPHILS % 0.2 % (0.0-1.0); HEMATOCRIT 26.8 % (38.2-49.6); LYMPHOCYTES # (AUTO) 1.5 (1.0-3.2); LYMPHOCYTES % 12.7 % (18.0-39.1); MEAN CORPUSCULAR HEMOGLOBIN 23.6 pg (28-32); MEAN CORPUSCULAR HGB CONC 29.9 g/dL (31-35); MEAN CORPUSCULAR VOLUME 79.1 fL (81-99); MONOCYTES # (AUTO) 0.7 (0.2-0.8); MONOCYTES % 5.8 % (4.4-11.3); NEUTROPHILS # (AUTO) 8.4 (2.1-6.9); NEUTROPHILS % 73.3 % (38.7-80.0); PLATELET COUNT 251 x10e3/uL (140-360); RED BLOOD COUNT 3.39 x10e6/uL (4.3-5.7); RED CELL DISTRIBUTION WIDTH 17.8 % (11.7-14.4)
[2022-05-24] MEDS: METHYLPREDNISOLONE SOD SUCC 40 MG/ML VIAL 1ML IV SCH ×2 (05:49→14:36)
[2022-05-24] MEDS: SODIUM CHLORIDE 0.45% 1,000 ML IV SCH ×2 (06:06→18:23)
[2022-05-24] MEDS: BISACODYL 10 MG SUPP PR SCH (08:16)
[2022-05-24] MEDS: IRON SUCROSE 100 MG in SODIUM CHLORIDE 0.9% 100 ML IV SCH (08:17)
[2022-05-24 08:30] LABS: ALBUMIN 1.6 g/dL (3.5-5.0); ALBUMIN/GLOBULIN RATIO 0.5 (0.8-2.0); CALCIUM 7.1 mg/dL (8.4-10.2); CREATININE, SERUM 0.86 mg/dL (0.72-1.25)
[2022-05-24] MEDS: KETOROLAC TROMETHAMINE 30 MG/ML VIAL IV PRN (08:35)
[2022-05-24] MEDS ORDERED: CHLORASEPTIC SPRAY 177 ML BTL MM PRN (08:45)
[2022-05-24] MEDS ORDERED: FUROSEMIDE INJ 10 MG/ML 2 ML VIAL IV ONE (19:15)
[2022-05-25] VITALS (7 sets, daily range): BP systolic 129–154; BP diastolic 83–90
[2022-05-25] MEDS: METHYLPREDNISOLONE SOD SUCC 40 MG/ML VIAL 1ML IV SCH ×2 (01:23→14:09)
[2022-05-25] MEDS: METRONIDAZOLE 500MG/NS 100ML 100 ML IV SCH ×4 (01:23→21:46)
[2022-05-25] MEDS: HYDROMORPHONE 1MG/1ML INJ IV PRN (04:21)
[2022-05-25] MEDS: SODIUM CHLORIDE 0.45% 1,000 ML IV SCH (05:41)
[2022-05-25 07:52] LABS: BASOPHILS % 0.2 % (0.0-1.0); HEMATOCRIT 27.2 % (38.2-49.6); HEMOGLOBIN 8.4 g/dL (14.0-18.0); LYMPHOCYTES # (AUTO) 1.3 (1.0-3.2); LYMPHOCYTES % 10.6 % (18.0-39.1); MEAN CORPUSCULAR HEMOGLOBIN 23.7 pg (28-32); MEAN CORPUSCULAR HGB CONC 30.9 g/dL (31-35); MEAN CORPUSCULAR VOLUME 76.6 fL (81-99); MONOCYTES # (AUTO) 0.7 (0.2-0.8); MONOCYTES % 5.2 % (4.4-11.3); NEUTROPHILS # (AUTO) 9.3 (2.1-6.9); NEUTROPHILS % 73.5 % (38.7-80.0); PLATELET COUNT 352 x10e3/uL (140-360); RED BLOOD COUNT 3.55 x10e6/uL (4.3-5.7); RED CELL DISTRIBUTION WIDTH 17.6 % (11.7-14.4)
[2022-05-25 08:07] LABS: ANION GAP 11.9 mmol/L (8-16); CALCIUM 7.2 mg/dL (8.4-10.2); CREATININE, SERUM 0.85 mg/dL (0.72-1.25); POTASSIUM 3.9 mmol/L (3.5-5.1)
[2022-05-25] MEDS: IRON SUCROSE 100 MG in SODIUM CHLORIDE 0.9% 100 ML IV SCH (10:00)
[2022-05-26] MEDS: METRONIDAZOLE 500MG/NS 100ML 100 ML IV SCH ×4 (02:00→20:24)
[2022-05-26] MEDS: HYDROMORPHONE 1MG/1ML INJ IV PRN (03:09)
[2022-05-26] MEDS: METHYLPREDNISOLONE SOD SUCC 40 MG/ML VIAL 1ML IV SCH ×2 (04:29→13:00)
[2022-05-26 08:00] VITALS: BP 149/96
[2022-05-26 08:16] VITALS: BP 149/96
[2022-05-26] MEDS: FUROSEMIDE 40 MG TAB PO SCH (09:52)
[2022-05-26] MEDS: IRON SUCROSE 100 MG in SODIUM CHLORIDE 0.9% 100 ML IV SCH (09:52)
[2022-05-26 12:03] VITALS: BP 153/82
[2022-05-26 16:34] VITALS: BP 137/86
[2022-05-26 20:00] VITALS: BP 142/84
[2022-05-26 21:00] VITALS: BP 142/84
[2022-05-27] VITALS (8 sets, daily range): BP systolic 128–154; BP diastolic 82–92
[2022-05-27] MEDS: METHYLPREDNISOLONE SOD SUCC 40 MG/ML VIAL 1ML IV SCH ×2 (03:07→13:41)
[2022-05-27] MEDS: METRONIDAZOLE 500MG/NS 100ML 100 ML IV SCH ×3 (03:09→14:23)
[2022-05-27 05:35] LABS: BASOPHILS # (AUTO) 0.1 (0.0-0.1); BASOPHILS % 0.3 % (0.0-1.0); LYMPHOCYTES # (AUTO) 1.6 (1.0-3.2); LYMPHOCYTES % 7.7 % (18.0-39.1); MEAN CORPUSCULAR HEMOGLOBIN 24.1 pg (28-32); MEAN CORPUSCULAR HGB CONC 32.1 g/dL (31-35); MEAN CORPUSCULAR VOLUME 75.1 fL (81-99); MONOCYTES # (AUTO) 1.1 (0.2-0.8); NEUTROPHILS # (AUTO) 16.1 (2.1-6.9); NEUTROPHILS % 76.7 % (38.7-80.0); PLATELET COUNT 446 x10e3/uL (140-360); RED BLOOD COUNT 3.73 x10e6/uL (4.3-5.7)
[2022-05-27 06:09] LABS: ALBUMIN 1.7 g/dL (3.5-5.0); ALBUMIN/GLOBULIN RATIO 0.6 (0.8-2.0); ANION GAP 9.5 mmol/L (8-16); CREATININE, SERUM 0.68 mg/dL (0.72-1.25); POTASSIUM 3.5 mmol/L (3.5-5.1)
[2022-05-27] MEDS ORDERED: SODIUM CHLORIDE 0.9% 0 ML ONE (08:01)
[2022-05-27] MEDS: FUROSEMIDE 40 MG TAB PO SCH (08:21)
[2022-05-27 09:44] LABS: LYMPHOCYTES % (MANUAL) 3 % (19-48); METAMYELOCYTES % (MANUAL) 3 % (0-0); MONOCYTES % (MANUAL) 2 % (3.4-9.0); MYELOCYTES % (MANUAL) 1 % (0-0); NEUTROPHILS % (MANUAL) 91 % (40-74); PLATELET ESTIMATE ADEQUATE; PLATELET MORPHOLOGY COMMENT FEW GIANT; RBC MORPHOLOGY COMMENT NORMAL
[2022-05-27] MEDS: IRON SUCROSE 100 MG in SODIUM CHLORIDE 0.9% 100 ML IV SCH (09:56)
[2022-05-28 00:02] VITALS: BP 170/92
[2022-05-28 05:13] LABS: BASOPHILS # (AUTO) 0.1 (0.0-0.1); BASOPHILS % 0.2 % (0.0-1.0); HEMATOCRIT 27.1 % (38.2-49.6); HEMOGLOBIN 8.7 g/dL (14.0-18.0); LYMPHOCYTES # (AUTO) 1.9 (1.0-3.2); LYMPHOCYTES % 6.4 % (18.0-39.1); MEAN CORPUSCULAR HEMOGLOBIN 24.4 pg (28-32); MEAN CORPUSCULAR HGB CONC 32.1 g/dL (31-35); MEAN CORPUSCULAR VOLUME 76.1 fL (81-99); MONOCYTES # (AUTO) 1.6 (0.2-0.8); MONOCYTES % 5.4 % (4.4-11.3); NEUTROPHILS # (AUTO) 24.2 (2.1-6.9); NEUTROPHILS % 83.3 % (38.7-80.0); PLATELET COUNT 452 x10e3/uL (140-360); RED BLOOD COUNT 3.56 x10e6/uL (4.3-5.7); RED CELL DISTRIBUTION WIDTH 18.7 % (11.7-14.4)
[2022-05-28 05:34] LABS: ALBUMIN 1.6 g/dL (3.5-5.0); ALBUMIN/GLOBULIN RATIO 0.6 (0.8-2.0); ANION GAP 11.5 mmol/L (8-16); CREATININE, SERUM 0.69 mg/dL (0.72-1.25); POTASSIUM 3.5 mmol/L (3.5-5.1)
[2022-05-28 05:52] LABS: CALCIUM 6.9 mg/dL (8.4-10.2)
[2022-05-28 05:55] VITALS: BP 153/90
[2022-05-28] MEDS ORDERED: METHYLPREDNISOLONE SOD SUCC 40 MG/ML VIAL 1ML IV SCH (06:00)
[2022-05-28 07:57] VITALS: BP 134/87
[2022-05-28 08:35] LABS: LYMPHOCYTES % (MANUAL) 6 % (19-48); MONOCYTES % (MANUAL) 7 % (3.4-9.0); MYELOCYTES % (MANUAL) 1 % (0-0); NEUTROPHILS % (MANUAL) 86 % (40-74); NUCLEATED RED BLOOD CELLS 1; PLATELET ESTIMATE ADEQUATE; PLATELET MORPHOLOGY COMMENT NORMAL; RBC MORPHOLOGY COMMENT NORMAL
[2022-05-28] MEDS: FUROSEMIDE 40 MG TAB PO SCH (08:43)
[2022-05-28] MEDS: IRON SUCROSE 100 MG in SODIUM CHLORIDE 0.9% 100 ML IV SCH (08:44)
[2022-05-28 08:50] VITALS: BP 134/87
[2022-05-28 12:00] VITALS: BP 123/85
[2022-05-28] MEDS ORDERED: VANCOMYCIN HCL 125 MG CAPSULE PO ONE (13:30)
[2022-05-28] MEDS ORDERED: PANTOPRAZOLE SO40 MG PO (15:32)
[2022-05-28] MEDS ORDERED: METRONIDAZOLE500 MG PO (15:32)
[2022-05-28] MEDS ORDERED: PREDNISONE20 MG PO (15:32)
[2022-05-28] MEDS ORDERED: FUROSEMIDE40 MG PO (15:32)
[2022-05-28] MEDS ORDERED: ONDANSETRON ODT4 MG PO (15:32)
[2022-05-28] MEDS ORDERED: VANCOMYCIN HCL125 MG PO (15:32)
[2022-05-28] MEDS ORDERED: TYLENOL325 MG PO (15:32)
[2022-05-28 15:40] VITALS: BP 138/87
[2022-05-28 16:54] LABS: BASOPHILS % 0.1 % (0.0-1.0); HEMATOCRIT 29.5 % (38.2-49.6); HEMOGLOBIN 9.2 g/dL (14.0-18.0); LYMPHOCYTES # (AUTO) 1.4 (1.0-3.2); LYMPHOCYTES % 4.2 % (18.0-39.1); MEAN CORPUSCULAR HEMOGLOBIN 24.5 pg (28-32); MEAN CORPUSCULAR HGB CONC 31.2 g/dL (31-35); MEAN CORPUSCULAR VOLUME 78.7 fL (81-99); MONOCYTES # (AUTO) 1.6 (0.2-0.8); MONOCYTES % 4.8 % (4.4-11.3); NEUTROPHILS # (AUTO) 28.2 (2.1-6.9); NEUTROPHILS % 85.9 % (38.7-80.0); PLATELET COUNT 543 x10e3/uL (140-360); RED BLOOD COUNT 3.75 x10e6/uL (4.3-5.7); RED CELL DISTRIBUTION WIDTH 19.6 % (11.7-14.4)
[2022-05-28] MEDS ORDERED: VANCOMYCIN HCL 125 MG CAPSULE PO SCH (18:00)
[2022-05-28] MEDS ORDERED: CEPHALEXIN 500 MG CAP PO SCH (21:00)
[2022-05-28] MEDS ORDERED: PREDNISONE 20 MG TAB PO SCH (21:00)
[2022-05-28] MEDS ORDERED: METRONIDAZOLE 500 MG TAB PO SCH (21:00)
[2022-06-16] MEDS ORDERED: Calcium Carbonate 500MG Chew PO (18:13)
[2022-06-16] MEDS ORDERED: SENNA LAX8.6 MG PO (18:13)
[2022-06-16] MEDS ORDERED: PREDNISONE20 MG PO (18:13)
[2022-06-16] MEDS ORDERED: METRONIDAZOLE500 MG PO (18:13)
[2022-06-16] MEDS ORDERED: ACETAMINOPHEN325 M1 PO (18:13)
[2022-06-16] MEDS ORDERED: DIFLUCAN100 MG PO (18:13)
== END 2022-05-28 17:58 | disposition home or self-care (01) | DRG 329 ==
LOC: ER 22:51 → ERHOLD 05-18 02:17 → MED/SURG 05-18 08:04 → ICU 05-21 17:15 → MED/SURG 05-24 22:10
PROVIDERS: ADMIT Internal Medicine; ATTEND Internal Medicine
PROC: 0DTF0ZZ Resection of Right Large Intestine, Open Approach (ICD-10-PCS; principal; 2022-05-21 14:20)
DX: K50.912 Crohn's disease, unspecified, with intestinal obstruction (principal); K65.8 Other peritonitis; E87.0 Hyperosmolality and hypernatremia; E46 Unspecified protein-calorie malnutrition; E44.1 Mild protein-calorie malnutrition; I10 Essential (primary) hypertension; Z90.49 Acquired absence of other specified parts of digestive tract; R73.9 Hyperglycemia, unspecified; K50.918 Crohn's disease, unspecified, with other complication; B96.1 Klebsiella pneumoniae [K. pneumoniae] as the cause of diseases classified elsewhere; B95.2 Enterococcus as the cause of diseases classified elsewhere; D64.9 Anemia, unspecified; Z20.822 Contact with and (suspected) exposure to COVID-19; Z68.22 Body mass index [BMI] 22.0-22.9, adult
CPT/HCPCS: 36415; 71045; 71046; 74018; 74019; 74022; 74177; 80048; 80053; 80061; 81001; 82607; 82746; 83036; 83540; 83690; 83735; 84100; 84466; 85025; 85045; 86141; 86256; 86671; 87071; 87075; 87186; 87205; 88307; 94799; 96361; 99284; J0330; J1100; J1170; J1756; J1885; J1940; J1956; J2001; J2250; J2270; J2405; J2543; J2710; J2920; J3010; J7030; J7050; J7120; J7121; Q9967